=== PATIENT | female | born 1975 | race Two or more races ===

== ENCOUNTER 2017-01-28 14:56 | Emergency (ER) | payer MEDICAID ==
[~2017-01-28] VITALS: Ht 157.5 cm; Wt 127.0 kg
[2017-01-28] MEDS ORDERED: NKM (15:10)
[2017-01-28] MEDS ORDERED: CEPHALEXIN500 MG ORAL (15:25)
[2017-01-28 15:32] VITALS: BP 144/69
[2017-01-28 15:33] VITALS: BP 144/69
--- NOTE | 2017-01-28 19:13 | Emergency Room Report ---
History of Present Illness General Chief Complaint: Skin Rash/Abscess Source: Patient Present Illness HPI The patient is a 41-year-old female with a history of diabetes presenting for an ulcer she noticed of the right foot yesterday. Patient states she explains as a 9/10 dull ache to the right foot between the fourth and fifth digits. Pain does not radiate. Pain is worse with walking. The patient also noticed a yellow discharge from this area. The patient denies any numbness or tingling. Patient denies any known injury to this area. Patient denies other symptoms including nausea, vomiting, fever, chills Allergies: Coded Allergies: No Known Allergies (Unverified , 01/28/17) Patient History Past Medical History: see triage record, DM Pertinent Family History: none Last Menstrual Period: 2 months ago Now: No Reviewed Nursing Documentation: PMH: Agreed, PSxH: Agreed Nursing Documentation-PMH Past Medical History: No History, Except For Hx Diabetes: Yes Review of Systems All Other Systems: negative except mentioned in HPI Physical Exam Vital Signs Date Time Temp Pulse Resp B/P Pulse Ox O2 Delivery O2 Flow Rate FiO2 01/28/17 15:05 98.2 62 16 144/69 99 Room Air Sp02 EP Interpretation: reviewed, normal General Appearance: no apparent distress, alert, GCS 15, non-toxic Head: normocephalic, atraumatic Eyes: bilateral eye PERRL, bilateral eye normal inspection ENT: hearing grossly normal, normal pharynx, no angioedema, normal voice Musculoskeletal: back normal, gait/station normal, normal range of motion, tender - TTP over the R foot 4th webspace Neurologic: alert, oriented x3, responsive, motor strength/tone normal, sensory intact, speech normal Psychiatric: judgement/insight normal, memory normal, mood/affect normal, no suicidal/homicidal ideation Skin: normal turgor, other - There is a 1cm in diamater ulceration of R foot 4th webspace. No DC. surrounding erythema. TTP. Lymphatic: no adenopathy Medical Decision Making PA Attestation Dr. Pantoja is my supervising physician. Patient management was discussed with my supervising physician Diagnostic Impression: Primary Impression: Cellulitis Additional Impression: Diabetic foot ulcer ER Course The patient is a 41-year-old female with a history of diabetes presenting for an ulcer she noticed of the right foot Ddx considered include but not limited to diabetic ulcer, insect bite, contact dermatitis, eczema, cellulitis PE: vitals WNL. NAD There is a 1cm in diameter ulceration of R foot 4th webspace. No DC. + surrounding erythema. TTP. Does not extend past dermis. 2+ DP pulse SILT The wound is irrigated with normal saline and Betadine. Wound is dressed with Xeroform and sterile dressing. The patient is given a prescription for Keflex and needs to follow up with PMD. ER precautions are given Last Vital Signs Date Time Temp Pulse Resp B/P Pulse Ox O2 Delivery O2 Flow Rate FiO2 01/28/17 15:33 98.2 16 144/69 99 Room Air 01/28/17 15:32 65 Status: improved Disposition: HOME, SELF-CARE Condition: Improved Scripts Cephalexin* (KEFLEX*) 500 Mg Capsule 500 MG ORAL EVERY 6 HOURS, #28 CAP Prov: EULALIA YU 01/28/17 Referrals: NOT CHOSEN IPA/MD,REFERRING (PCP) Patient Instructions: Diabetes and Foot Care, Cellulitis Additional Instructions: I discussed my findings with the patient. All questions and concerns have been answered. Treatment and medication compliance have been addressed. I advised the patient that they need to follow up with PMD in 3-5 days. Return to ED if symptoms worsen, new symptoms arise, or if needed for any reason. Patient verbalized understanding of discharge instructions. The patient will continue to keep the area clean and dry EULALIA YU Jan 28, 2017 19:13
== END 2017-01-28 15:33 | disposition home or self-care (01) ==
LOC: EMR 15:20
DX: E11.621 Type 2 diabetes mellitus with foot ulcer (principal); L03.115 Cellulitis of right lower limb
CPT/HCPCS: 99283

== ENCOUNTER 2019-08-14 18:44 | Emergency (ER) | payer MEDICAID ==
[~2019-08-14] VITALS: Ht 157.5 cm; Wt 124.7 kg
[~2019-08-14 18:44] MED LIST: CEPHALEXIN500 MG ORAL; NKM
[2019-08-14 19:10] VITALS: BP 156/55
--- NOTE | 2019-08-14 19:10 | NUR ---
ED Nurse Note: Patient walked in to ER c/o CP x3 days. States that pain was on and off, but today it started radiating to the right jaw, and right arm. Patient presented calm, with non-labored breathing, O2 sat 100% on RA. AAO x4, VSS at this time, skin is dry warm to touch.
[2019-08-14 20:00] LABS: ANION GAP 6 mmol/L (5-15); BLOOD UREA NITROGEN 11 mg/dL (7-18); CALCIUM 9.2 MG/DL (8.5-10.1); CARBON DIOXIDE 29 MMOL/L (21-32); CHLORIDE 103 MMOL/L (98-107); CREATININE 0.9 MG/DL (0.55-1.30); POTASSIUM 3.4 MMOL/L (3.5-5.1); SODIUM 138 MMOL/L (136-145)
[2019-08-14 20:04] LABS: BASOPHILS % (AUTO) 1.4 % (0.0-2.0); EOSINOPHILS % (AUTO) 1.9 % (0.0-3.0); HEMATOCRIT 42.9 % (37.0-47.0); LYMPHOCYTES % (AUTO) 32.9 % (20.0-45.0); MEAN CORPUSCULAR VOLUME 87 FL (80-99); MONOCYTES % (AUTO) 9.2 % (1.0-10.0); NEUTROPHILS % (AUTO) 54.6 % (45.0-75.0); PLATELET COUNT 307 K/UL (150-450); RED BLOOD COUNT 4.94 M/UL (4.20-5.40); RED CELL DISTRIBUTION WIDTH 9.8 % (11.6-14.8); WHITE BLOOD COUNT 8.8 K/UL (4.8-10.8)
[2019-08-14 20:24] LABS: ALANINE AMINOTRANSFERASE 39 U/L (12-78); ALBUMIN 3.6 G/DL (3.4-5.0); ALBUMIN/GLOBULIN RATIO 0.8 (1.0-2.7); ALKALINE PHOSPHATASE 124 U/L (46-116); ASPARTATE AMINO TRANSFERASE 25 U/L (15-37); BILIRUBIN,TOTAL 0.4 MG/DL (0.2-1.0); CKMB 1.8 NG/ML (0.0-3.6); CREATINE KINASE 119 U/L (26-308)
[2019-08-14] MEDS ORDERED: IBUPROFEN600 MG ORAL (20:51)
--- NOTE | 2019-08-14 20:51 | Emergency Room Report ---
History of Present Illness General Chief Complaint: Chest Pain Source: Patient Present Illness HPI 43-year-old female with history of diabetes uncontrolled as she reports that she has not taken her metformin over 1 year, here complaining of 2 days of sudden onset of chest pain at rest radiating to left arm with tingling and numbness of left arm. Complains of blurry vision however denies headache and dizziness. Denies palpitation, abdominal pain, nausea vomiting, fever and chills. Patient sitting comfortably with stable vital signs. Denies having history of anxiety. Denies having the chest pain when doing something strenuous. Denies being seen by her primary care physician in over a year. Has not taken medication for symptom relief. Denies eating spicy and acidic food. Denies consumption of alcohol, tobacco, or any drug use. Denies URI symptoms and cough and congestion. Allergies: Coded Allergies: No Known Allergies (Unverified , 01/28/17) Patient History Past Medical History: see triage record Past Surgical History: unable to obtain Pertinent Family History: none Last Menstrual Period: 07/15/19 Now: No Immunizations: UTD Reviewed Nursing Documentation: PMH: Agreed; PSxH: Agreed Nursing Documentation-PMH Hx Diabetes: Yes Review of Systems All Other Systems: negative except mentioned in HPI Physical Exam Vital Signs Date Time Temp Pulse Resp B/P (MAP) Pulse Ox O2 Delivery O2 Flow Rate FiO2 08/14/19 18:48 98.2 62 13 156/55 (88) 99 Room Air Sp02 EP Interpretation: reviewed, normal General Appearance: no apparent distress, alert, GCS 15, non-toxic Head: normocephalic, atraumatic Eyes: bilateral eye normal inspection, bilateral eye PERRL ENT: hearing grossly normal, normal pharynx, no angioedema, normal voice Neck: full range of motion, supple, supple/symm/no masses Respiratory: chest non-tender, lungs clear, normal breath sounds, no rhonchi, no wheezing, speaking full sentences Cardiovascular #1: regular rate, rhythm, no edema, no murmur, normal capillary refill Cardiovascular #2: 2+ dorsalis pedis (R), 2+ dorsalis pedis (L) Gastrointestinal: normal bowel sounds, non tender, soft, non-distended, no guarding, no rebound Rectal: deferred Genitourinary: normal inspection, no CVA tenderness Musculoskeletal: back normal, gait/station normal, normal range of motion, non- tender Neurologic: alert, oriented x3, responsive, motor strength/tone normal, sensory intact, speech normal Psychiatric: judgement/insight normal, memory normal, mood/affect normal, no suicidal/homicidal ideation Skin: no rash Lymphatic: no adenopathy Medical Decision Making PA Attestation Diagnosis and treatment plans were reviewed and discussed with my supervising physician Dr. Galvaiz Diagnostic Impression: Primary Impression: Chest pain Additional Impression: Anxiety ER Course 43-year-old female with history of diabetes uncontrolled as she reports that she has not taken her metformin over 1 year, here complaining of 2 days of sudden onset of chest pain at rest radiating to left arm with tingling and numbness of left arm. Complains of blurry vision however denies headache and dizziness. Denies palpitation, abdominal pain, nausea vomiting, fever and chills. Patient sitting comfortably with stable vital signs. Denies having history of anxiety. Denies having the chest pain when doing something strenuous. Denies being seen by her primary care physician in over a year. Has not taken medication for symptom relief. Denies eating spicy and acidic food. Denies consumption of alcohol, tobacco, or any drug use. Denies URI symptoms and cough and congestion. Ddx considered but are not limited to: OR, Angina, COPD, GERD,, anxiety Vital signs: are WNL, pt. is afebrile H&PE are most consistent with chest pain unspecified most likely secondary to anxiety ORDERS: EKG, Chest XR, cardiac labs(troponin, CBC, CMP, lipid, BNP), Motrin ED INTERVENTIONS: None required at this time. DISCHARGE: At this time pt. is stable for d/c to home. Will provide printed patient care instructions, and any necessary prescriptions. Care plan and follow up instructions have been discussed with the patient prior to discharge. I advised patient to follow-up with primary care provider for referral to [facility] for echo as well as further assessment of chest pain, also continue taking metformin, most likely patient has anxiety and is a cause of her chest pain. If worsening emergency room. Since patient had no syncope, no loss of consciousness, no headache and dizziness and vital signs are within normal limits no CT scan of head was done. EKG Diagnostic Results Rate: bradycardiac ST Segments: no acute changes Other Impression No acute ST changes Chest X-Ray Diagnostic Results Chest X-Ray Diagnostic Results : Chest X-Ray Ordered: Yes # of Views/Limited/Complete: 1 View Indication: Shortness of Breath EP Interpretation: Yes PA Xray: Interpretation reviewed, by supervising MD, and agrees with findings. Interpretation: no consolidation, no effusion, no pneumothorax Impression: No acute disease Electronically Signed by: Farida SHANKS Scribe Text No cardiac or pulmonary symptoms to correlate with chest x-ray Last Vital Signs Date Time Temp Pulse Resp B/P (MAP) Pulse Ox O2 Delivery O2 Flow Rate FiO2 08/14/19 19:10 62 13 Room Air 08/14/19 19:10 98.2 156/55 99 Disposition: HOME, SELF-CARE Condition: Stable Scripts Ibuprofen* (MOTRIN*) 600 Mg Tablet 600 MG ORAL Q6H PRN for For Pain, #30 TAB Prov: Farida Keyes 08/14/19 Referrals: NOT CHOSEN [facility]/,REFERRING (PCP) Patient Instructions: Nonspecific Chest Pain Additional Instructions: Follow-up with your primary care provider avoid strenuous physical activity you need to go back on metformin regarding her diabetes. Your chest pain may be secondary to anxiety symptoms. Farida Keyes Aug 14, 2019 20:51
[2019-08-14 21:03] VITALS: BP 146/67
--- NOTE | 2019-08-14 21:05 | NUR ---
ER DISCHARGE NOTE: Patient is cleared to be discharged per ERMD, pt is aox4, on room air, with stable vital signs. pt was given dc and prescription instructions, pt was able to verbalize understanding, pt id band and iv site removed without complications. pt is able to ambulate with steady gait. pt took all belongings.
--- NOTE | 2019-08-15 11:40 | Diagnostic Imaging Report ---
Indication: Dyspnea Comparison: None A single view chest radiograph was obtained. Findings: Cardiomediastinal appearance is within normal limits for age. The lungs are clear. Pulmonary vascularity is appropriate. The diaphragmatic contour is smooth and costophrenic angles are sharp. No pleural effusions are identified. The bones are unremarkable. Impression: No acute findings
--- NOTE | 2019-08-16 17:34 | Cardiology Report ---
APPROVED REPORT EKG Measurement Heart [id number] Sinus bradycardia Anterior infarct, age undetermined Possible inferior infarct, age undetermined Abnormal ECG
== END 2019-08-14 21:05 | disposition home or self-care (01) ==
LOC: EMR 19:08
DX: R07.9 Chest pain, unspecified (principal); F41.9 Anxiety disorder, unspecified; E11.9 Type 2 diabetes mellitus without complications
CPT/HCPCS: 36415; 71045; 80053; 80307; 82550; 82553; 84484; 85025; 93005; Z7502; 99283